=== PATIENT | female | born 1960 | race Caucasian/White ===

== ENCOUNTER → 2018-10-25 10:22 | Outpatient (CLI) | payer BC, SELFPAY ==
--- NOTE | 2018-10-25 10:30 | XR_ITS ---
XR wrist RT min 3V HISTORY follow-up fracture ITS.REASON: right wrist fx ORDERING PHYSICIAN: Chari Turcios MD PATIENT AGE: 58 years Comparison: 10/18/2018 FINDINGS: Comminuted distal radial fracture once again noted with intra-articular extension and mild impaction of the fracture fragments. There is mild displacement of the anterior distal radial fracture by approximately 3 mm as before. There is avulsion fracture of the ulnar styloid. IMPRESSION: No change comminuted intra-articular fracture of the distal radius with mild displacement and with ulnar styloid avulsion fracture.
== END ==
PROVIDERS: PCP Family Medicine; Visit Provider Orthopaedic Surgery
DX: S62.101A Fracture of unspecified carpal bone, right wrist, initial encounter for closed fracture (principal)
CPT/HCPCS: 73110

== ENCOUNTER 2018-10-26 10:02 | Day surgery (SDC) | payer BC, SELFPAY ==
[2018-10-25 13:34] VITALS: BMI 26.2
[2018-10-26] VITALS (10 sets, daily range): BP systolic 128–163; BP diastolic 78–95; PULSE 68–79; RESP 16–20; TEMP 36.7–43; O2SAT 93–97
--- NOTE | 2018-10-26 14:23 | XR_ITS ---
XR wrist RT 2V HISTORY follow-up wrist fracture/pain/ORIF With ORDERING PHYSICIAN: Chari Turcios MD PATIENT AGE: 58 years Comparison: 10/25/2018 Fluoroscopy time: 4 minutes and 26 seconds FINDINGS: Status post ORIF distal radial fracture with placement of anterior bone plate with C-arm guidance. There does appear to be good alignment on the 2 limited images submitted. IMPRESSION: Good alignment status post ORIF distal radial fracture
--- NOTE | 2018-10-26 15:16 | P.PN_ITS ---
[facility] Anesthesia Checklist - Patient Identification Patient Identification: Arm Band, Verbal (Name & ) - Structural Data Admitted From: Home Planned Operative Procedure/s: orif wrist Consent for Planned Operative Procedure(s) Verified: Yes Verified Documents: History and Physical - NPO Status Verified Time NPO: 00:00 - Additional verifications Patient : No Anesthesia Reactions: No Hx Blood Transfusions: No Blood Transfusion Reaction: No Cephalosporin Allergy: No Previous Colonoscopy: No - Cardiovascular Assessment Heart Sounds: S1 & S2 Pulse Strength: Baseline Peripheral Edema: Yes - Airway Assessment C-Spine Mobility Assessed: Yes TMJ Mobility Assessed: Yes Dentition: Good Dentition - Neurological Assessment Level of Consciousness: Awake, Alert, Appropriate Hx Seizures: No Numbness or tingling in extremities: No - Anesthesia Plan Anesthesia Risk discussed: Yes Anesthesia Plan: Patient unable to respond/answer ASA Class: II Anesthesia Type: MAC [facility] History I have reviewed the patient's past medical history: Yes Medical History: Denies:: Cancer, Diabetes Mellitus Type 1, Diabetes Mellitus Type 2, Internal Pacemaker, MRSA, Seizures *Have you ever received a pneumonia vaccine?: No *Have you received a flu vaccine this season?: No Other Medical History: Denies: Blood Transfusion Reaction Other Surgeries: No: Pacemaker Amputation: No Fractures: Yes - *Social History Smoking Status: Current every day smoker Tobacco Type: cigarettes # Packs/Day (cigarettes): 10 Alcohol Intake: never *Occupational Status:: employed *Travel in the last 8 weeks: None - Psychiatric History Expresses thoughts of harming self/others: None Suicide Plan Description: No Plan Family Hx:: Cancer, Hypertension
--- NOTE | 2018-10-26 15:18 | P.PN_ITS ---
[facility] Anesthesia Record Part I Intake, IV Amount: 1,400 Estimated blood loss (mL): 10 Urine output (mL): 10 Blood Products used (#): none Blood Pressure: 148/95 SaO2: 96 Pulse Rate: 79 Respiratory Rate: 20 Temperature: 98.1 F Patient is:: Drowsy, Stable Stable to PACU at:: 15:21
--- NOTE | 2018-10-26 15:19 | P.PN_ITS ---
[facility] Anesthesia Record Part II Discharge Time: 15:41 Destination: Surgical Day Care (OP Surgery) PACU nurse assessment reviewed?: Yes Patient Condition:: Good Anesthesia Complications:: None Swallowing reflex intact?: Yes Cyanosis?: No
--- NOTE | 2018-10-26 15:57 | HMH.OPNOTE ---
Date of procedure: 10/26/18 Pre-op Diagnosis:: R distal radius fracture Post-op Diagnosis:: R distal radius fracture Procedure performed:: ORIF R distal radius fracture Surgeon:: Chari Turcios MD Electric Spot Welder(s):: SPRING Alejandro MD STEAMSHIP AGENT:: Shaun Peter Anesthesia: GETA, regional Estimated blood loss (mL): 10 Clinical Note:: 58yo F who sustained a R distal radius fracture on 10/17/2018 while weed eating her yard; she slipped and fell, sustaining a comminuted, intraarticular R DRF with moderate shortening and dorsal angulation. I evaluated her 2 days later and recommended surgery; she was initially hesitant to have surgery, but she was too swollen at the time to consider immediate fixation anyhow. A well-padded sugartong splint was applied and I saw her a week later; the swelling had resolved, and the patient was agreeable to surgery. I discussed risks of surgery, including bleeding, infection, neurovascular damage, non-union, hardware failure, post-traumatic arthritis, post-operative stiffness, and persistent pain in the wrist; I also strongly encouraged her to stop smoking, as this increases the risk of non-union. The patient vocalized understanding and informed consent obtained. Operative findings:: implants: Zack VariAx volar locking distal radius plate screws: all 2.7mm diameter, varying lengths = 12mm non-locking x3 18mm locking x5 20mm locking x1 16mm locking x1 14mm non-locking x1 Operative note:: The patient was identified in preoperative holding and the right arm signed by myself. Consent was verified with the patient and all questions answered. She was seen by anesthesia and supraclavicular nerve block administered. The patient was then transferred to the OR and placed supine on the operative table with a hand table under the right upper extremity. 1 g Ancef was infused intravenously and general anesthesia induced with an LMA. Once the patient was anesthetized, her splint was removed from the right wrist and a nonsterile tourniquet placed on the right upper arm. The right arm was then prepped and draped in the usual sterile fashion for wrist surgery. Timeout was performed, identifying the correct patient, correct procedure, and correct site. The procedure was begun by bringing in the C arm to confirm the site of the fracture in the distal radius. The desired surgical incision was drawn over the volar aspect of the wrist, centered over the flexor carpi radialis tendon, extending from the distal wrist flexion crease approximately 6 cm proximally. The arm was then exsanguinated with an Esmarch and the tourniquet inflated to 250 mmHg. The skin was incised with a sterile 15 blade and once the skin was incised subcutaneous tissue was bluntly dissected with tenotomy scissors. The subcutaneous tissue was spread bluntly until the FCR was identified. I incised the anterior FCR tendon sheath and retracted the tendon ulnarly. I next incised the posterior tendon sheath and spread the underlying tissue, exposing the FPL tendon and the FDS to the index finger. These tendons were retracted ulnarly as well. This exposed the underlying pronator quadratus muscle. I did not readily identify the radial artery, but I could palpate this within the radial sided tissues. The pronator quadratus was sharply reflected off of the distal radius bone with an ulnarly based flap and reflected off of the bone, exposing the underlying distal radius. I identified the fracture as extra-articular/metaphyseal, however it had an intra-articular split with large ulnar and radial sided pieces, with comminution dorsally. Sterile finger traps were applied to the index finger and thumb, and 5 pounds longitudinal traction applied to the wrist. This reduced the fracture nicely, and a freer was used to aid with keying in the reduction. Once the reduction was satisfactory, the major fragments were secured with
--- NOTE | 2018-10-26 16:08 | P.OP_ITS ---
Date of procedure: 10/26/18 Pre-op Diagnosis:: R distal radius fracture Post-op Diagnosis:: R distal radius fracture Procedure performed:: ORIF R distal radius fracture Surgeon:: Chari Turcios MD Pipe Assembly Worker(s):: SPRING Alejandro MD INTEGRATED CIRCUITS INSPECTOR:: Shaun Peter Anesthesia: GETA, regional Estimated blood loss (mL): 10 Clinical Note:: 58yo F who sustained a R distal radius fracture on 10/17/2018 while weed eating her yard; she slipped and fell, sustaining a comminuted, intraarticular R DRF with moderate shortening and dorsal angulation. I evaluated her 2 days later and recommended surgery; she was initially hesitant to have surgery, but she was too swollen at the time to consider immediate fixation anyhow. A well-padded sugartong splint was applied and I saw her a week later; the swelling had resolved, and the patient was agreeable to surgery. I discussed risks of surgery, including bleeding, infection, neurovascular damage, non-union, hardware failure, post-traumatic arthritis, post-operative stiffness, and persistent pain in the wrist; I also strongly encouraged her to stop smoking, as this increases the risk of non-union. The patient vocalized understanding and informed consent obtained. Operative findings:: implants: Zack VariAx volar locking distal radius plate screws: all 2.7mm diameter, varying lengths = 12mm non-locking x3 18mm locking x5 20mm locking x1 16mm locking x1 14mm non-locking x1 Operative note:: The patient was identified in preoperative holding and the right arm signed by myself. Consent was verified with the patient and all questions answered. She was seen by anesthesia and supraclavicular nerve block administered. The patient was then transferred to the OR and placed supine on the operative table with a hand table under the right upper extremity. 1 g Ancef was infused intravenously and general anesthesia induced with an LMA. Once the patient was anesthetized, her splint was removed from the right wrist and a nonsterile tourniquet placed on the right upper arm. The right arm was then prepped and draped in the usual sterile fashion for wrist surgery. Timeout was performed, identifying the correct patient, correct procedure, and correct site. The procedure was begun by bringing in the C arm to confirm the site of the fracture in the distal radius. The desired surgical incision was drawn over the volar aspect of the wrist, centered over the flexor carpi radialis tendon, extending from the distal wrist flexion crease approximately 6 cm proximally. The arm was then exsanguinated with an Esmarch and the tourniquet inflated to 250 mmHg. The skin was incised with a sterile 15 blade and once the skin was incised subcutaneous tissue was bluntly dissected with tenotomy scissors. The subcutaneous tissue was spread bluntly until the FCR was identified. I incised the anterior FCR tendon sheath and retracted the tendon ulnarly. I next incised the posterior tendon sheath and spread the underlying tissue, exposing the FPL tendon and the FDS to the index finger. These tendons were retracted ulnarly as well. This exposed the underlying pronator quadratus muscle. I did not readily identify the radial artery, but I could palpate this within the radial sided tissues. The pronator quadratus was sharply reflected off of the distal radius bone with an ulnarly based flap and reflected off of the bone, exposing the underlying distal radius. I identified the fracture as extra- articular/metaphyseal, however it had an intra-articular split with large ulnar and radial sided pieces, with comminution dorsally. Sterile finger traps
--- NOTE | 2018-10-26 17:00 | SUR.PHASEI ---
1538-Pt BP slightly elevated, notified [facility] MARY. No new orders received.
== END 2018-10-26 16:12 | disposition home or self-care (01) ==
LOC: OR 10:07
PROVIDERS: PCP Family Medicine; Visit Provider Orthopaedic Surgery
PROC: (CPT 25608; principal; 2018-10-26 11:30)
DX: S52.571A Other intraarticular fracture of lower end of right radius, initial encounter for closed fracture (principal); W01.198A Fall on same level from slipping, tripping and stumbling with subsequent striking against other object, initial encounter; Y93.H2 Activity, gardening and landscaping; Y92.017 Garden or yard in single-family (private) house as the place of occurrence of the external cause
CPT/HCPCS: 25608; 73100; 76000; 96374; C1713; C1769; C1776; J2405

== ENCOUNTER → 2018-11-01 09:05 | Outpatient (CLI) | payer BC, SELFPAY ==
--- NOTE | 2018-11-01 09:09 | XR_ITS ---
XR wrist RT min 3V HISTORY follow-up ORIF ITS.REASON: post op DOS 10/26/18 ORDERING PHYSICIAN: Chari Turcios MD PATIENT AGE: 58 years Comparison: 10/25/2018 FINDINGS: There is an anterior bone plate present stabilizing the comminuted distal radial fracture with good alignment. Mildly displaced avulsion fracture involves the tip of the ulnar styloid. IMPRESSION: Good alignment status post ORIF distal radial fracture.
== END ==
PROVIDERS: PCP Family Medicine; Visit Provider Orthopaedic Surgery
DX: S62.101A Fracture of unspecified carpal bone, right wrist, initial encounter for closed fracture (principal)
CPT/HCPCS: 73110

== ENCOUNTER → 2018-11-08 09:26 | Outpatient (CLI) | payer BC, SELFPAY ==
--- NOTE | 2018-11-08 09:33 | XR_ITS ---
EXAM: Right wrist INDICATION: ITS.REASON: post op DOS 10/26 ORDERING PHYSICIAN: Chari Turcios MD PATIENT AGE: 58 years COMPARISON: 11/01/2018. 3 views. The orthopedic hardware involving the distal radius appears stable. The small avulsed fragment of the ulnar styloid process is stable. There is persistent moderate narrowing of the radiocarpal joint space. The remainder of the exam is unchanged. Impression: Stable exam. No change or acute process.
== END ==
PROVIDERS: PCP Family Medicine; Visit Provider Orthopaedic Surgery
DX: S62.101A Fracture of unspecified carpal bone, right wrist, initial encounter for closed fracture (principal)
CPT/HCPCS: 73110

== ENCOUNTER → 2018-12-06 10:39 | Outpatient (CLI) | payer BC, SELFPAY ==
--- NOTE | 2018-12-06 10:46 | XR_ITS ---
XR wrist RT min 3V CLINICAL INDICATION: ITS.REASON: wrist fracture ORDERING PHYSICIAN: Chari Turcios MD PATIENT AGE: 58 years Comparison: 11/07/2018. FINDINGS: Orthopedic hardware with compression plate and fixation screws involving distal radius appears stable. The diffuse mild osteopenia is unchanged. Corticated small ossific densities distal to the ulna either from prior trauma or developmental or stable. There is no acute fracture. IMPRESSION: No change.
== END ==
PROVIDERS: PCP Family Medicine; Visit Provider Orthopaedic Surgery
DX: S62.101A Fracture of unspecified carpal bone, right wrist, initial encounter for closed fracture (principal)
CPT/HCPCS: 73110

== ENCOUNTER → 2019-01-05 08:52 | Outpatient (CLI) | payer BC, SELFPAY ==
--- NOTE | 2019-01-05 09:07 | XR_ITS ---
PROCEDURE: XR WRIST RT MIN 3V CLINICAL INDICATION: Wrist fracture COMPARISON: from 10/25/2018 from 12/06/2018 FINDINGS: The metallic plate is seen along the volar surface of the distal radius fixated by multiple threaded screws transfixing the previously noted comminuted impacted fracture of the distal radius and radial styloid. The small avulsion chip fracture of the ulnar styloid is again noted on fused. There is patchy disuse osteopenia of the carpal bones metacarpals and visualized IMPRESSION: Satisfactory ORIF distal radial fracture Dictated by: Dr. Irineo Valle MD 01/05/2019 11:23 Signed by: <Electronically signed by Dr. Irineo Valle MD in [place]> 01/05/2019 11:23
== END ==
PROVIDERS: PCP Family Medicine; Visit Provider Orthopaedic Surgery
DX: S52.501A Unspecified fracture of the lower end of right radius, initial encounter for closed fracture (principal)
CPT/HCPCS: 73110